=== PATIENT | male | born 1985 | race Caucasian/White ===

== ENCOUNTER 2018-12-24 11:54 | Emergency (ER) | payer BC ==
[2018-12-24] MEDS: Ketorolac 60 MG/2 ML SDV IM ONE (12:06)
--- NOTE | 2018-12-24 12:10 | EDM.PDOC ---
ED HPI GENERAL MEDICAL PROBLEM - General Stated Complaint: POSSIBLE FX RIBS Time Seen by Provider: 12/24/18 12:00 Source of Information: Reports: Patient History Limitations: Reports: No Limitations - History of Present Illness INITIAL COMMENTS - FREE TEXT/NARRATIVE: According to patient, he was trying to clifford a pig , pig kicked him in his left anterior chest about 11 am today. Since then he claims he has been having pain over the chest wall in the left infraclavicular region. Rate pain at 3/10, pain gets worse when he tires to raises his left arm or flex the arm. also hurts to take deep breath. No bruising or contusion of the chest wall. No wheezing or shortness of breath. No nausea or vomiting. No other complaints. Onset: Today Onset Date: 12/24/18 Onset Time: 11:00 Location: Reports: Chest Quality: Reports: Ache Severity: Moderate Improves with: Reports: None Worsens with: Reports: Movement Associated Symptoms: Reports: Chest Pain. Denies: Confusion, Cough, Diaphoresis , Fever/Chills, Headaches, Nausea/Vomiting, Rash, Seizure, Shortness of Breath, Syncope, Weakness - Related Data Allergies Allergy/AdvReac Type Severity Reaction Status Date / Time No Known Allergies Allergy Verified 12/24/18 12:19 ED ROS GENERAL - Review of Systems Review Of Systems: See Below Constitutional: Denies: Fever, Chills HEENT: Denies: Rhinitis, Throat Pain Respiratory: Reports: Pleuritic Chest Pain. Denies: Shortness of Breath, Cough , Sputum Cardiovascular: Reports: Chest Pain. Denies: Edema, Lightheadedness, Syncope GI/Abdominal: Denies: Abdominal Pain, Constipation, Diarrhea, Nausea, Vomiting : Denies: Dysuria, Frequency, Hematuria Musculoskeletal: Denies: Joint Pain, Joint Swelling Skin: Denies: Bruising, Pruritis, Rash ED EXAM, GENERAL - Physical Exam Exam: See Below Exam Limited By: No Limitations General Appearance: Alert, WD/WN, No Apparent Distress Ears: Normal External Exam, Normal Canal, Hearing Grossly Normal, Normal TMs Ear Exam: Bilateral Ear: Auricle Normal, Canal Normal, TM normal Nose: Normal Inspection, Normal Mucosa, No Blood Throat/Mouth: Normal Inspection, Normal Lips, Normal Teeth, Normal Gums, Normal Oropharynx, Normal Voice, No Airway Compromise Head: Atraumatic, Normocephalic Neck: Normal Inspection, Supple, Non-Tender, Full Range of Motion Respiratory/Chest: No Respiratory Distress, Lungs Clear, Normal Breath Sounds, No Accessory Muscle Use, Other (tender over the left infraclavicular area over the pectoralis muscle mass. No crepitus or rib tendeness) Cardiovascular: Normal Peripheral Pulses GI/Abdominal: Normal Bowel Sounds, Soft, Non-Tender, No Organomegaly, No Distention, No Abnormal Bruit, No Mass Extremities: Normal Inspection, Normal Range of Motion, Non-Tender, Normal Capillary Refill, No Pedal Edema Neurological: Alert, Oriented, CN II-XII Intact, Normal Cognition, Normal Gait, Normal Reflexes, No Motor/Sensory Deficits Course - Vital Signs Text/Narrative:: Pt is a well built male. He is tender over the left pectoralis muscle mass. No rib tenderness or crepitus felt. On inspection, there is no skin bruising or swelling of the muscle noted.He did receive toradol 60mg Im in the emergency room. X-ray chest appears normal. Pt reassured that he has chest wall pain. Advised to alternate heat and cold for 24 hrs. Then intermittent heat to the chest wall 2-3 times daily. Motrin 800mg 3 times daily with food for pain. pain should gradually improve. Followup with his primary care provider next week for further evaluation or worsening symptoms. - Orders/Labs/Meds Orders: Active Orders 24 hr Category Date Time Status Chest 2V [CR] Stat Exams 12/24/18 12:04 Ordered Departure - Departure Time of Disposition: 12:25 Disposition: Home, Self-Care 01 Condition: Fair Clinical Impression: Anterior chest wall pain - Discharge Information *PRESCRIPTION DRUG MONITORING PROGRAM REVIEWED*: Not Applicable *COPY OF PRESCRIPTION DRUG MONITORING REPORT IN PATIENT FELICIA: Not Applicable - Problem List & Annotations (1) Anterior chest wall pain SNOMED Code(s): 632183229 Code(s): R07.89 - OTHER CHEST PAIN Status: Acute Current Visit: Yes - Problem List Review Problem List Initiated/Reviewed/Updated: Yes - My Orders Last 24 Hours: My Active Orders 12/24/18 12:04 Chest 2V [CR] Stat - Assessment/Plan Last 24 Hours: My Active Orders 12/24/18 12:04 Chest 2V [CR] Stat Assessment:: Anterior chest wall pain Plan: Pt is a well built male. He is tender over the left pectoralis muscle mass. No rib tenderness or crepitus felt. On inspection, there is no skin bruising or swelling of the muscle noted.He did receive toradol 60mg Im in the emergency room. X-ray chest appears normal. Pt reassured that he has chest wall pain. Advised to alternate heat and cold for 24 hrs. Then intermittent heat to the chest wall 2-3 times daily. Motrin 800mg 3 times daily with food for pain. pain should gradually improve. Followup with his primary care provider next week for further evaluation or worsening symptoms.
--- NOTE | 2018-12-24 21:10 | CR ---
CLINICAL DATA: Anterior chest wall pain. PA AND LATERAL CHEST, 24 DECEMBER 2018: No priors. The heart size is normal. The lungs are clear. No pneumothorax. No pleural effusions. No fractures. No evidence of acute intrathoracic disease. Job: [id number] MTDD
== END 2018-12-24 12:25 | disposition home or self-care (01) ==
LOC: LB.ED 11:54
DX: R07.89 Other chest pain (principal)
CPT/HCPCS: 71046; 96372; 99284-25; J1885